=== PATIENT | male | born 1950 | race Caucasian/White ===

== ENCOUNTER 2023-08-01 07:09 | Outpatient (OUT) | payer MEDICARE, OTHER, SELFPAY ==
[2023-08-01 07:47] LABS: Chol HDL Ratio 4.3; Cholesterol 147 mg/dL (<=200); HDL Cholesterol 34 mg/dL (40-60); Triglycerides 193 mg/dL (<=150); VLDL CHOLESTEROL 38.6 mg/dL
--- NOTE | 2023-08-01 08:35 | CA_ITS ---
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 Right: - no significant pressure gradient between cuffs - normal Left: - no significant pressure gradient between cuffs - normal Impression: - normal arterial evaluation of the lower extremities without hemodynamic impairment of the B/L lower extremity at rest. (right 1.18, left 1.23) - normal response to exercise Electronically Signed On 08-02-2023 6:53:00 EST by YOGESH MENDENHALL
== END 2023-08-01 07:10 | disposition home or self-care (01) ==
LOC: LAB 07:10
PROVIDERS: PCP Internal Medicine; Visit Provider Nurse Practitioner
DX: E78.1 Pure hyperglyceridemia (principal); I73.9 Peripheral vascular disease, unspecified; I50.22 Chronic systolic (congestive) heart failure; R06.09 Other forms of dyspnea
CPT/HCPCS: 36415; 80061; 93924

== ENCOUNTER 2023-10-01 08:42 | Outpatient (OUT) | payer MEDICARE, OTHER, SELFPAY ==
[2023-10-01 08:57] LABS: Hemoglobin 14.3 g/dL (14.0-18.0)
--- NOTE | 2023-10-01 09:36 | RT_ITS ---
[facility] Test Date: 2023-10-01 Pat Name: BRIAN DONOVAN Department: Room: - Gender: Male Bicycle Courier: Khadar Zarate RRT : 1950 Requested By: [id number] Order Number: [id number] Reading MD: Anuel Chang Interpretive Statements Pulmonary function testing was completed according to ATS criteria. Findings were considered accurate and reproducible. No bronchodilator was administered due to normal spirometric values. Spirometry: -FEV1/FVC: Normal @ 80% -FEV1: Low normal @ 83% -FVC: Mildly reduced @ 76% Lung volumes by plethysmography: -RV: Normal @ 100% -TLC: Normal @ 91% Diffusion capacity: -DLCO: Mild reduction @ 77% when corrected for Hb 14.3g/dL Flow-volume loop: -Mild restrictive pattern Impressions: -Spirometry suggests mild restriction. Lung volumes are normal. There is a mildly reduced diffusion capacity. A reduced FVC with normal TLC can represent an obesity pattern based on BMI 45. An isoloated decreased DLCO can be seen in, but not restricted to, cardiopulmonary vascular disorders, early interstitial lung disease, and early emphysema. Clinical correlation required. Electronically Signed On 10-01-2023 12:53:29 EDT by Anuel Chang
== END 2023-10-01 08:43 | disposition home or self-care (01) ==
LOC: CARD 08:42
PROVIDERS: PCP Internal Medicine; Visit Provider Nurse Practitioner
DX: I50.22 Chronic systolic (congestive) heart failure (principal); R06.09 Other forms of dyspnea
CPT/HCPCS: 36415; 85018; 94010; 94726; 94729